=== PATIENT | male | born 1980 | race Two or more races ===

== ENCOUNTER → 2023-01-28 | Outpatient (CLI) | payer OTHER ==
[~2023-01-28] MED LIST: AMOCLA875 PO
== END ==
LOC: LAB SHORT 16:53 → PLD 16:53
DX: D48.5 Neoplasm of uncertain behavior of skin (principal)
CPT/HCPCS: 88312

== ENCOUNTER 2023-05-31 10:06 | Day surgery (SDC) | payer OTHER ==
[~2023-05-31] VITALS: Ht 170.2 cm; Wt 122.3 kg
[~2023-05-31 10:06] MED LIST changes: +Lactated Ringer's 1,000 ML IV ONE; +Ropivacaine 0.5% HCl/Pf 5 MG/ML 20ML VIAL ONE
[2023-05-31] MEDS ORDERED: BUPR75 PO (10:32)
[2023-05-31] MEDS ORDERED: METF500 PO (10:33)
[2023-05-31] MEDS ORDERED: HYDROCHLOROTH12.5 MG PO (10:33)
[2023-05-31] MEDS ORDERED: LOSA50 PO (10:33)
[2023-05-31] MEDS ORDERED: ROSU5 PO (10:34)
[2023-05-31] MEDS ORDERED: TRAZ100 PO (10:34)
[2023-05-31] MEDS ORDERED: B-12500 MC2 PO (10:35)
[2023-05-31] MEDS ORDERED: Vitamin B-12100 MCG (10:35)
[2023-05-31] MEDS ORDERED: [UNRECOGNIZED DRUG - OTHER] (10:36)
[2023-05-31] MEDS ORDERED: Lactated Ringer's 1,000 ML IV ONE (10:50)
[2023-05-31] MEDS ORDERED: CeFAZolin Sodium 3,000 MG in NS 100 ML IV SCH (10:50)
--- NOTE | 2023-05-31 11:14 | NUR ---
05/31/[address] MONTES AWARE THAT PATIENT DRANK 1/3 CUP OF LORETTA KELTON AT 0815 BECAUSE HE FELT HIS BLOOD SUGAR DROPPING. PER DR QUEZADA, OK TO PROCEED. DR MONTES CHANGED ANCEF ORDER TO BE 3 GRAMS PER POLICY BECAUSE PATIENT WEIGHT IS 122.3 KG.
[2023-05-31] MEDS ORDERED: propofoL 40 ML IV ONE (11:27)
[2023-05-31] MEDS ORDERED: FentaNYL Citrate 50 MCG/ML 2 ML Injection ONE (11:27)
[2023-05-31] MEDS ORDERED: Midazolam HCl 1MG / ML 2ML Vial ONE (11:38)
[2023-05-31] MEDS ORDERED: Dexamethasone Sod Phos 10 MG/ML 1ML VIAL ONE (11:39)
[2023-05-31] MEDS ORDERED: EPINEPhrine HCl 1 MG/ML 1ML Amp XX ONE (11:58)
[2023-05-31] MEDS ORDERED: Ondansetron HCl 2 MG / ML 2ML Vial ONE (12:30)
[2023-05-31 13:08] VITALS: BP 121/63
[2023-05-31] MEDS ORDERED: HYDROcodone 5-APAP 325 TAB ONE (13:33)
--- NOTE | 2023-05-31 13:46 | NUR ---
05/31/[address] ORDERED FOR PT TO TAKE NORCO 5/325. WHEN GIVEN MEDICATION, PT STATED THAT HE WAS UNSURE IF HE COULD TAKE ACETAMINOPHEN, AND HE HAD BEEN TOLD BY HIS PRIMARY CARE PROVIDER THAT HE NEEDED TO AVOID ACETAMINOPHEN BECAUSE OF THE MEDICATIONS HE WAS TAKING. AFTER DISCUSSING SITUATION WITH CALLI, WE LOOKED OVER THE PTS CHART TOGETHER AND DID NOT SEE ANYTHING INDICATING A NEED TO AVOID ACETAMINOPHEN. CALLI IS DISCUSSING ISSUE WITH DR MONTES AND WILL DISCUSS THE RESULTS WITH THE PT.
== END 2023-05-31 14:02 | disposition home or self-care (01) ==
LOC: ORSCSDS 10:06
PROVIDERS: Podiatrist Foot & Ankle Surgery
PROC: 0SBG4ZZ Excision of Left Ankle Joint, Percutaneous Endoscopic Approach (ICD-10-PCS; principal; 2023-05-31 11:45)
PROC: 0MQR4ZZ Repair Left Ankle Bursa and Ligament, Percutaneous Endoscopic Approach (ICD-10-PCS; principal; 2023-05-31 11:45)
DX: M24.872 Other specific joint derangements of left ankle, not elsewhere classified (principal); M65.9 Synovitis and tenosynovitis, unspecified; E11.9 Type 2 diabetes mellitus without complications; I10 Essential (primary) hypertension; Z87.891 Personal history of nicotine dependence; E66.01 Morbid (severe) obesity due to excess calories; Z68.41 Body mass index [BMI] 40.0-44.9, adult; Z79.84 Long term (current) use of oral hypoglycemic drugs; Z79.899 Other long term (current) drug therapy
CPT/HCPCS: 82947; A9270; C1713; J0171; J0690; J1100; J2250; J2405; J2704; J2795; J3010; J7120

== ENCOUNTER 2023-12-09 10:42 | Day surgery (SDC) | payer OTHER ==
[~2023-12-09] VITALS: Ht 175.3 cm; Wt 121.0 kg
[~2023-12-09 10:42] MED LIST changes: +B-12500 MC2 PO; +BUPR100 PO; +BUPR75 PO; +HYDROCHLOROTH12.5 MG PO; +LOSA50 PO; -Lactated Ringer's 1,000 ML IV ONE; +METF500 PO; +ROSU5 PO; -Ropivacaine 0.5% HCl/Pf 5 MG/ML 20ML VIAL ONE; +TRAZ100 PO; +Vitamin B-12100 MCG; +[UNRECOGNIZED DRUG - OTHER]
[2023-12-09] MEDS ORDERED: AMLO5 (11:13)
[2023-12-09] MEDS ORDERED: Lactated Ringer's 1,000 ML IV ONE ×2 (11:20→11:37)
[2023-12-09] MEDS ORDERED: Ropivacaine 0.5% HCL/PF 5 MG/ML 30ML Vial ONE (11:34)
[2023-12-09] MEDS ORDERED: CeFAZolin Sodium 2,000 MG VIAL ONE (11:37)
[2023-12-09] MEDS ORDERED: FentaNYL Citrate 50 MCG/ML 2 ML Injection ONE (11:37)
[2023-12-09] MEDS ORDERED: Midazolam HCL 1 MG/ML 5MLVIAL ONE (11:37)
[2023-12-09] MEDS ORDERED: NS 50 ML IV ONE (11:37)
[2023-12-09] MEDS ORDERED: Labetalol HCL 5 MG/ML 4ML Injection (Single Dose) ONE (11:58)
[2023-12-09 12:36] VITALS: BP 137/98
== END 2023-12-09 12:41 | disposition home or self-care (01) ==
LOC: ORSCSDS 10:42
PROVIDERS: Orthopaedic Surgery
PROC: 01N50ZZ Release Median Nerve, Open Approach (ICD-10-PCS; principal; 2023-12-09 11:45)
DX: G56.01 Carpal tunnel syndrome, right upper limb (principal); E11.9 Type 2 diabetes mellitus without complications; I10 Essential (primary) hypertension; F41.9 Anxiety disorder, unspecified; F32.A Depression, unspecified; G47.33 Obstructive sleep apnea (adult) (pediatric); E78.00 Pure hypercholesterolemia, unspecified; E66.01 Morbid (severe) obesity due to excess calories; Z68.41 Body mass index [BMI] 40.0-44.9, adult; Z79.84 Long term (current) use of oral hypoglycemic drugs; Z79.899 Other long term (current) drug therapy; Z87.891 Personal history of nicotine dependence
CPT/HCPCS: 82947; J0690; J2250; J2795; J3010; J7120